=== PATIENT | female | born 1985 | race Caucasian/White ===

== ENCOUNTER 2020-08-16 19:47 | Observation (INO) ==
[2020-08-16] MEDS ORDERED: fentaNYL 100 MCG/2 ML VIAL IV STA (20:10)
[2020-08-16 20:25] LABS: Basophils # 0.1 10*3/uL (0.0-0.2); Basophils % 0.5 % (0.0-0.8); Eosinophils # 0.1 10*3/uL (0.0-0.87); Eosinophils % 0.8 % (0.00-10.9); Hematocrit 40.3 VOL% (35.7-47.0); Hemoglobin 13.6 GM/DL (12.0-16.0); Immature Granulocytes % 0.8 %; Immature Granulocytes Absolute 0.14 #; Lymphocytes % 16.5 % (21.3-54.2); Mean Corpuscular HGB Conc 33.7 GM/DL (32-36); Mean Corpuscular Volume 82.1 FL (87-102); Mean Platelet Volume 9.5 FL (9.6-12.0); Monocytes % 5.1 % (1.7-12.7); Neutrophils % 76.3 % (38.7-73.9); Platelet Count 423 T/CUMM (130-400); Red Blood Count 4.91 MC/CUMM (3.8-5.5); Red Cell Distribution Width 12.9 % (9.3-17.3); White Blood Count 17.9 T/CUMM (4-12)
[2020-08-16 20:44] LABS: Alanine Aminotransferase 20 U/L (13-56); Alkaline Phosphatase 76 U/L (45-117); Aspartate Amino Transferase 14 U/L (0-37); Bilirubin,Total < 0.39 MG/DL (0.2-1.0); Blood Urea Nitrogen 8 MG/DL (7-18); Calcium 9.2 MG/DL (8.5-10.1); Estimated Glom Filtration Rate 91 ML/MIN; Glucose 167 MG/DL (74-106); Total Protein 7.7 G/DL (6.4-8.3)
[2020-08-16] MEDS ORDERED: ACETAMINOPHEN 325 MG TABLET PO PRN (22:41)
[2020-08-16] MEDS ORDERED: ONDANSETRON 4 MG/2 ML VIAL IV PRN (22:41)
[2020-08-16] MEDS ORDERED: LACTATED RINGERS 1,000 ML IV ONE (22:54)
[2020-08-16] MEDS ORDERED: ONDANSETRON 4 MG/2 ML VIAL IV STA (23:01)
[2020-08-17] MEDS: LACTATED RINGERS 1,000 ML IV SCH ×3 (01:56→15:39)
[2020-08-17] MEDS: MORPHINE 4 MG/1 ML VIAL IV PRN ×2 (03:45→07:50)
[2020-08-17 09:39] LABS: Basophils % 0.5 % (0.0-0.8); Eosinophils # 0.1 10*3/uL (0.0-0.87); Eosinophils % 0.7 % (0.00-10.9); Hematocrit 34.6 VOL% (35.7-47.0); Immature Granulocytes % 0.2 %; Immature Granulocytes Absolute 0.02 #; Lymphocytes # 2.1 10*3/uL (1.4-4.0); Lymphocytes % 23.7 % (21.3-54.2); Mean Corpuscular HGB Conc 33.5 GM/DL (32-36); Mean Corpuscular Volume 83.6 FL (87-102); Mean Platelet Volume 9.6 FL (9.6-12.0); Monocytes % 7.2 % (1.7-12.7); Neutrophils % 67.7 % (38.7-73.9); Red Blood Count 4.14 MC/CUMM (3.8-5.5)
[2020-08-17 09:53] LABS: Hemoglobin 11.6 GM/DL (12.0-16.0); Platelet Count 338 T/CUMM (130-400); White Blood Count 8.7 T/CUMM (4-12)
[2020-08-17] MEDS ORDERED: FLUTICASONE 50 MCG NASAL SPRAY 16 GM BOTTLE BOTH NARES PRN (10:01)
[2020-08-17] MEDS ORDERED: CETIRIZINE 10 MG TABLET PO PRN (10:01)
[2020-08-17 10:03] LABS: Calcium 8.8 MG/DL (8.5-10.1); Osmolality,Calculated 273.8 MOS/KG (273-304)
[2020-08-17] MEDS ORDERED: KETOROLAC 15 MG/1 ML VIAL IV SCH (10:30)
[2020-08-17 13:39] VITALS: BP 117/79
[2020-08-18] MEDS ORDERED: ESCITALOPRAM 10 MG TABLET PO SCH (09:00)
== END 2020-08-17 15:39 | disposition home or self-care (01) ==
LOC: EDBD → EDUNIT# → N.ED 19:47 → N.EDINP 19:47 → N.TELEN 08-17 00:52
PROVIDERS: ADMIT Student in an Organized Health Care Education/Training Program; ATTEND Student in an Organized Health Care Education/Training Program